=== PATIENT | male | born 1990 | race African-American/Black ===

== ENCOUNTER 2022-08-14 10:52 | Emergency (ER) | payer OTHER ==
[2022-08-14 11:02] VITALS: BP 126/82; PULSE 87; RESP 18; TEMP 98.6; BMI 48.9
[2022-08-14] MEDS ORDERED: KETOROLAC TROMETHAMINE 30 MG/1 ML VIAL IM ONE (11:16)
[2022-08-14] MEDS ORDERED: DEXAMETHASONE LIQUID 0.5 MG/5 ML PO ONE (11:19)
[2022-08-14] MEDS ORDERED: KETOROLAC TROMETHAMINE 30 MG/1 ML VIAL ONE (11:28)
[2022-08-14] MEDS ORDERED: ALBUTEROL SO4 2.5/IPRATROPIUM 0.5 INH SOL 3 ML VIAL.NEB. NEB ONE (11:28)
[2022-08-14] MEDS ORDERED: DEXAMETHASONE SOD PHOSPHATE 10 MG/1 ML VIAL ONE (11:28)
[2022-08-14] MEDS ORDERED: ALBUTEROL SO4 2.5/IPRATROPIUM 0.5 INH SOL 3 ML VIAL.NEB. NEB SCH (11:30)
[2022-08-14 12:57] LABS: EPI CELLS 1 /uL (0-25.1); HYALINE CASTS 0 /uL (0-3.1); URINE APPEARANCE CLEAR; URINE BACTERIA 4 /uL (0-1359); URINE BILIRUBIN NEGATIVE (NEGATIVE); URINE COLOR YELLOW; URINE GLUCOSE (UA) NEGATIVE (NEGATIVE); URINE KETONE NEGATIVE (NEGATIVE); URINE LEUK ESTERASE NEGATIVE (NEGATIVE); URINE NITRITE NEGATIVE (NEGATIVE); URINE PROTEIN NEGATIVE (NEGATIVE); URINE RBC 42 /uL (0-23.9); URINE WBC 3 /uL (0-25.8)
== END 2022-08-14 13:54 | disposition home or self-care (01) ==
LOC: JER 10:52
PROC: 3E0F7GC Introduction of Other Therapeutic Substance into Respiratory Tract, Via Natural or Artificial Opening (ICD-10-PCS; principal; 2022-08-14)
PROC: 3E0233Z Introduction of Anti-inflammatory into Muscle, Percutaneous Approach (ICD-10-PCS; 2022-08-14)
DX: J20.9 Acute bronchitis, unspecified (principal)
CPT/HCPCS: 0241U-QW; 71046-TC-FY; 81003; 99284-25

== ENCOUNTER 2022-08-22 20:41 | Emergency (ER) | payer OTHER ==
[2022-08-22 20:47] VITALS: BP 143/81; PULSE 87; RESP 18; TEMP 97.9; BMI 48.0
[2022-08-22] MEDS ORDERED: SODIUM CHLORIDE 0.9% 500 ML INFUS.BAG IV ONE (22:03)
[2022-08-22 22:16] LABS: BASO % 1.3 % (0-2.0); HEMATOCRIT 45.1 % (35.4-49); HEMOGLOBIN 14.5 GM/dL (11.7-16.9); LYMPH % 29.2 % (8-40); MCHC 32.1 g/dl (32.0-35.9); MEAN CELL VOLUME 84.1 fl (80-96); MEAN PLT VOLUME 7.2 fl (7.5-11.1); MONO % 7.6 % (3.8-10.2); NEUT % 58.9 % (42.8-82.8); PLATELET COUNT 377 10^3/uL (134-434); RBC 5.37 M/mm3 (4.00-5.60); RDW 14.8 % (11.9-15.9); WHITE BLOOD COUNT 7.9 K/mm3 (4.0-10.0)
[2022-08-22 22:20] LABS: EPI CELLS 3 /uL (0-25.1); HYALINE CASTS 0 /uL (0-3.1); PH,URINE 6.5 (5.0-8.0); URINE APPEARANCE CLEAR; URINE BACTERIA 1 /uL (0-1359); URINE BILIRUBIN NEGATIVE (NEGATIVE); URINE COLOR YELLOW; URINE GLUCOSE (UA) NEGATIVE (NEGATIVE); URINE KETONE NEGATIVE (NEGATIVE); URINE LEUK ESTERASE NEGATIVE (NEGATIVE); URINE NITRITE NEGATIVE (NEGATIVE); URINE PROTEIN NEGATIVE (NEGATIVE); URINE RBC 45 /uL (0-23.9); URINE UROBILINOGEN 0.2 mg/dL (0.2-1.0); URINE WBC 2 /uL (0-25.8)
[2022-08-22 22:43] LABS: CALCIUM 9.4 mg/dL (8.5-10.1)
[2022-08-22 22:44] LABS: ALBUMIN 3.9 g/dl (3.4-5.0); BLOOD UREA NITROGEN 13.6 mg/dL (7-18)
[2022-08-22 22:47] LABS: CREATININE 1.1 mg/dL (0.55-1.3)
[2022-08-22 22:48] LABS: BILIRUBIN,TOTAL 0.3 mg/dL (0.2-1); TOT PROT 8.2 g/dl (6.4-8.2)
[2022-08-23] MEDS ORDERED: TAMSULOSIN HCL 0.4 MG CAP ONE (01:51)
[2022-08-23] MEDS ORDERED: TAMSULOSIN HCL 0.4 MG CAP PO ONE (02:01)
== END 2022-08-23 02:20 | disposition home or self-care (01) ==
LOC: JERFT 20:41
DX: N23 Unspecified renal colic (principal)
CPT/HCPCS: 36415; 74176-TC; 80053; 81003; 85025; 87086; 99284-25

== ENCOUNTER 2022-12-12 03:56 | Day surgery (SDC) | payer OTHER ==
[2022-12-09 09:39] VITALS: BMI 50.5
[2022-12-12] MEDS ORDERED: MIDAZOLAM HCL 2 MG/2 ML SINGLE DOSE VIAL ONE (09:42)
[2022-12-12 10:25] VITALS: RESP 20; TEMP 98.7
[2022-12-12 11:05] VITALS: BP 104/70; PULSE 76
[2022-12-12] MEDS ORDERED: BACITRACIN ZINC 15 GM TUBE TOPICAL OINTMENT ONE (12:44)
== END 2022-12-12 11:28 | disposition home or self-care (01) ==
LOC: JASU-SURG 03:56
PROVIDERS: ATTEND Urology
PROC: 0TF3XZZ Fragmentation in Right Kidney Pelvis, External Approach (ICD-10-PCS; principal; 2022-12-12 09:00)
DX: N20.0 Calculus of kidney (principal)

== ENCOUNTER 2024-07-03 15:14 | Emergency (ER) | payer OTHER ==
[2024-07-03 15:27] VITALS: BP 113/73; PULSE 84; RESP 20; TEMP 98.6; BMI 44.2
== END 2024-07-03 17:49 | disposition home or self-care (01) ==
LOC: JERFT 15:14
DX: S93.402A Sprain of unspecified ligament of left ankle, initial encounter (principal); X50.1XXA Overexertion from prolonged static or awkward postures, initial encounter
CPT/HCPCS: 73610-TC-LT-FY; 73630-TC-LT; 99283-25